=== PATIENT | male | born 1990 | race Caucasian/White ===

== ENCOUNTER 2016-08-04 13:57 | Emergency (ER) | payer MEDICAID ==
[~2016-08-04] VITALS: Ht 157.5 cm; Wt 68.0 kg
[2016-08-04 14:02] VITALS: BP_SYST 123
[2016-08-04 14:38] VITALS: BP_SYST 122
== END 2016-08-04 14:38 ==
LOC: SED 13:57
DX: M54.2 Cervicalgia (principal)
CPT/HCPCS: 99283

== ENCOUNTER 2021-11-26 20:10 | Emergency (ER) | payer SELFPAY ==
[~2021-11-26] VITALS: Ht 157.5 cm; Wt 72.6 kg
[2021-11-26 20:42] VITALS: BP_SYST 136
[2021-11-26] MEDS ORDERED: LIDOCAINE 1% 10 MG/ML, 20 ML MDV INJ ONE (22:30)
--- NOTE | 2021-11-26 22:31 | NUR ---
Patient to ER bed 08 to gown for evaluation. Side rails up. Report given to CONCHIS CRENSHAW
[2021-11-26] MEDS ORDERED: HYDROcodone/ACETAMIN 5-325 MG TAB (NORCO/ VICODIN) PO ONE (23:00)
--- NOTE | 2021-11-26 23:00 | NUR ---
PT from home after slipping by the pool due to wet surface. Pt denies K,O AND LOC. 1inch lac noted on left orbital bone.
--- NOTE | 2021-11-26 23:06 | NUR ---
Dr. De Jeuss at bedside for lac repair.
[2021-11-26] MEDS ORDERED: MORPHINE 4 MG INJ. 4 MG/ML VIAL IM ONE (23:30)
[2021-11-26 23:57] VITALS: BP_SYST 127
--- NOTE | 2021-11-26 23:58 | NUR ---
Patient given written and verbal discharge instructions and verbalizes understanding. ER MD discussed with patient the results and treatment provided. Patient in stable condition. ID arm band removed. IV catheter removed intact and dressing applied, no active bleeding. No Rx given. Patient educated on pain management and to follow up with PMD. Pain Scale 0/10 Opportunity for questions provided and answered.
== END 2021-11-26 23:57 | disposition home or self-care (01) ==
LOC: SED 20:10
DX: S01.81XA Laceration without foreign body of other part of head, initial encounter (principal); Z79.899 Other long term (current) drug therapy; W16.031A Fall into swimming pool striking wall causing drowning and submersion, initial encounter; Y93.89 Activity, other specified; Y92.89 Other specified places as the place of occurrence of the external cause; Y99.8 Other external cause status
CPT/HCPCS: 99283; 12013; 96372; J2001; J2270